=== PATIENT | male | born 1995 | race African-American/Black ===

== ENCOUNTER 2021-11-22 13:45 | Emergency (ER) | payer MEDICAID ==
[~2021-11-22] VITALS: Ht 182.9 cm; Wt 83.9 kg
[2021-11-22] MEDS ORDERED: MORPHINE SULFATE 4 MG/ML CPJ (NOT FOR IM USE) IV ONE (14:15)
[2021-11-22] MEDS ORDERED: LIDOCAINE HCL 1% 20ML VIAL (Pyxis) INJ INFIL ONE (14:15)
[2021-11-22] MEDS ORDERED: KETOROLAC 30MG/ML VIAL IV ONE (14:15)
[2021-11-22 16:40] VITALS: BP 118/68
[2021-11-22] MEDS ORDERED: IBUP-2028 MT ×2 (16:57)
[2021-11-22] MEDS ORDERED: IBUP-2029 MT (17:09)
== END 2021-11-22 17:45 | disposition home or self-care (01) ==
LOC: ER 13:45
DX: S43.005A Unspecified dislocation of left shoulder joint, initial encounter (principal); F12.10 Cannabis abuse, uncomplicated; F11.10 Opioid abuse, uncomplicated; J45.909 Unspecified asthma, uncomplicated; Z88.6 Allergy status to analgesic agent; V00.131A Fall from skateboard, initial encounter; Y93.89 Activity, other specified; Y92.89 Other specified places as the place of occurrence of the external cause; Y99.8 Other external cause status
CPT/HCPCS: 73030; 96374; 96375; 99284; J1885; J2270; J3490; Z7610

== ENCOUNTER 2025-08-30 15:08 | Emergency (ER) | payer MEDICAID, OTHER ==
[~2025-08-30] VITALS: Ht 177.8 cm; Wt 92.8 kg
[~2025-08-30 15:08] MED LIST: IBUP-1455 MT
[2025-08-30 15:12] VITALS: BP 122/70; RESP 18; TEMP 36.8; O2SAT 97
[2025-08-30 15:22] VITALS: PULSE 93; O2SAT 99
[2025-08-30] MEDS ORDERED: IBUP-2030 MT (18:19)
[2025-08-30] MEDS ORDERED: IBUPROFEN 800MG TABLET PO ONE (18:30)
== END 2025-08-30 19:06 | disposition home or self-care (01) ==
LOC: ER 15:08
DX: M25.571 Pain in right ankle and joints of right foot (principal); M79.671 Pain in right foot; J45.909 Unspecified asthma, uncomplicated; F10.90 Alcohol use, unspecified, uncomplicated; F12.90 Cannabis use, unspecified, uncomplicated; Z88.6 Allergy status to analgesic agent; X58.XXXA Exposure to other specified factors, initial encounter; Y93.89 Activity, other specified; Y92.89 Other specified places as the place of occurrence of the external cause; Y99.8 Other external cause status; Y90.9 Presence of alcohol in blood, level not specified
CPT/HCPCS: 29515; 73600; 73630; 99284